=== PATIENT | female | born 1990 | race Caucasian/White ===

== ENCOUNTER 2019-12-13 21:07 | Observation (INO) ==
[2019-12-13 22:27] LABS: Bacteria,Urine Few per hpf (None-Few); Bilirubin,Urine Negative (Negative); Blood,Urine Trace (Negative); Clarity,Urine Clear (Clear); Color,Urine Light-Yellow (Yellow); Glucose,Urine (UA) Normal (Normal); Ketones,Urine Negative (Negative); Leukocyte Esterase,Urine Negative (Negative); Nitrite,Urine Negative (Negative); Protein,Urine Negative (Neg-Trace); Specific Gravity,Urine 1.014 (1.010-1.025); Squamous Epithelial Cell,Urine Few per hpf (None-Few); Urobilinogen,Urine Normal (Normal); WBC,Urine 0-3 per hpf (0-3)
[2019-12-13 23:13] LABS: Basophils % 0.2 %; Eosinophils % 0.2 %; Hematocrit 38.3 % (35.3-44.9); Hemoglobin 12.4 g/dL (11.5-15.4); Immature Granulocytes % 0.3 % (0-4); Lymphocytes # 2.8 K/mcL (0.6-4.6); Lymphocytes % 24.2 %; Mean Corpuscular HGB Conc 32.4 g/dL (31.6-35.5); Mean Corpuscular Hemoglobin 30.2 pg (28.0-33.3); Mean Corpuscular Volume 93.2 fL (83.0-100.0); Mean Platelet Volume 10.7 fL (9.4-12.4); Monocytes # 0.9 K/mcL (0.0-1.3); Monocytes % 7.3 %; Neutrophils # 7.8 K/mcL (1.6-8.9); Platelet Count 220 K/mcL (140-400); Red Blood Count 4.11 M/mcL (3.82-4.97); Red Cell Distribution Width 12.4 % (11.5-14.5); Segmented Neutrophils % 67.8 %; White Blood Count 11.6 K/mcL (4.3-11.1)
[2019-12-13 23:30] LABS: BUN/Creatinine Ratio 12 (6-26); Blood Urea Nitrogen 12 mg/dL (6-20); Calcium 8.9 mg/dL (8.6-10.3); Carbon Dioxide 27 mEq/L (23-29); Chloride 106 mEq/L (98-107); Glucose 93 mg/dL (70-105); Osmolality,Calculated 289 (280-300); Potassium 3.6 mEq/L (3.5-5.1); Sodium 140 mEq/L (136-145); eGFR For African Americans > 60 (> 60); eGFR For Non-African Americans > 60 (> 60)
[2019-12-13] MEDS ORDERED: Isovue-370 500 ML BOTTLE IVP ONE (23:52)
[2019-12-14 00:15] LABS: C-Reactive Protein < 5 mg/L (Less than 10); Troponin I < 0.03 ng/mL (< 0.04)
[2019-12-14] MEDS ORDERED: diazePAM 5 MG TABLET PO ONE (02:59)
[2019-12-14 05:43] LABS: Amphetamine Screen,Urine Negative ng/mL (Cutoff=1000); Barbiturate Screen,Urine Negative ng/mL (Cutoff=200); Benzodiazepines Screen,Urine Negative ng/mL (Cutoff=200); Cannabinoid Screen,Urine Negative ng/mL (Cutoff = 50); Cocaine Screen,Urine Negative ng/mL (Cutoff= 300); Opiate Screen,Urine Negative ng/mL (Cutoff=300); Phencyclidine Screen,Urine Negative ng/mL (Cutoff=25)
[2019-12-14 05:55] LABS: Albumin 3.9 g/dL (3.5-5.7); Albumin/Globulin Ratio 1.7 (1.1-2.2); Bilirubin,Direct 0.2 mg/dL (0.0-0.2); Bilirubin,Indirect 0.6 mg/dL (0.0-1.0); Bilirubin,Total 0.8 mg/dL (0.3-1.0); Globulin 2.3 g/dL (2.4-3.5); Total Protein 6.2 g/dL (6.4-8.9)
[2019-12-14] MEDS ORDERED: Naloxone 0.4 MG/ML INJ IVP PRN (06:51)
[2019-12-14] MEDS ORDERED: Acetaminophen 325 MG TABLET PO PRN (06:51)
[2019-12-14] MEDS ORDERED: *HR* Promethazine 25 MG/ML VIAL IVP PRN (06:51)
[2019-12-14 08:49] LABS: Chol/HDL Ratio 1.8 (0-4.9); Magnesium 1.9 mg/dL (1.6-2.6); Phosphorous 4.1 mg/dL (2.7-4.5)
[2019-12-14] MEDS ORDERED: Gadolinium Contrast Agent (WT Based) IV PRN ×2 (08:57→12:07)
[2019-12-14 09:22] LABS: Thyroid Stimulating Hormone 4.537 mcIU/mL (0.340-5.600)
[2019-12-14] MEDS ORDERED: Cosyntropin 250 MCG/2 ML VIAL IVP ONE (09:58)
[2019-12-14 10:29] LABS: Folate 4.1 ng/mL (3.0-16.0)
[2019-12-14] MEDS ORDERED: Cyanocobalamin (B-12) 1,000 MCG/ML VIAL IM ONE (11:30)
[2019-12-14] MEDS ORDERED: Hydrocortisone 10 MG TABLET PO ONE (13:45)
[2019-12-15 02:13] LABS: Basophils % 0.5 %; Eosinophils # 0.1 K/mcL (0.0-0.6); Eosinophils % 1.1 %; Hematocrit 40.2 % (35.3-44.9); Immature Granulocytes % 0.4 % (0-4); Lymphocytes # 2.8 K/mcL (0.6-4.6); Lymphocytes % 33.7 %; Mean Corpuscular HGB Conc 32.3 g/dL (31.6-35.5); Mean Corpuscular Volume 92.6 fL (83.0-100.0); Mean Platelet Volume 10.4 fL (9.4-12.4); Monocytes # 0.6 K/mcL (0.0-1.3); Neutrophils # 4.7 K/mcL (1.6-8.9); Platelet Count 218 K/mcL (140-400); Red Blood Count 4.34 M/mcL (3.82-4.97); Red Cell Distribution Width 12.4 % (11.5-14.5); Segmented Neutrophils % 57.3 %; White Blood Count 8.3 K/mcL (4.3-11.1)
[2019-12-15 02:16] LABS: Prothrombin Time 10.9 Seconds (9.4-12.1)
[2019-12-15 02:32] LABS: BUN/Creatinine Ratio 15 (6-26); Blood Urea Nitrogen 12 mg/dL (6-20); Calcium 8.9 mg/dL (8.6-10.3); Carbon Dioxide 27 mEq/L (23-29); Chloride 105 mEq/L (98-107); Glucose 91 mg/dL (70-105); Osmolality,Calculated 287 (280-300); Potassium 3.8 mEq/L (3.5-5.1); Sodium 139 mEq/L (136-145); eGFR For African Americans > 60 (> 60); eGFR For Non-African Americans > 60 (> 60)
[2019-12-15] MEDS ORDERED: Hydrocortisone 10 MG TABLET PO SCH (09:00)
[2019-12-15] MEDS ORDERED: Gadolinium Contrast Agent (WT Based) IV PRN (09:10)
[2019-12-15] MEDS: Cyanocobalamin (B-12) 1,000 MCG/ML VIAL IM SCH (12:25)
[2019-12-15] MEDS: Hydrocortisone 10 MG TABLET PO SCH (20:46)
[2019-12-16 06:49] VITALS: BP 100/65
[2019-12-16] MEDS: Hydrocortisone 10 MG TABLET PO SCH (09:10)
[2019-12-16] MEDS: Cyanocobalamin (B-12) 1,000 MCG/ML VIAL IM SCH (09:10)
== END 2019-12-16 10:26 | disposition home or self-care (01) ==
LOC: 3BNU 21:07 → EMEROOARM 21:07 → SUATTDRO 12-14 05:03 → 3BNU 12-14 05:51
PROVIDERS: ADMIT Student in an Organized Health Care Education/Training Program; ATTEND Internal Medicine